=== PATIENT | female | born 1955 | race Caucasian/White ===

== ENCOUNTER 2017-04-29 13:29 | Inpatient (IN) | payer OTHER ==
[~2017-04-29] VITALS: Ht 165.1 cm; Wt 98.7 kg
--- NOTE | ~2017-04-29 | S ---
[facility] [place] [address] SURGICAL PATH RPT PROCEDURE Name: HEATHER YEUNG Room #: 236-P ADM IN M.R.#: [id number] Admission: 04/29/17 Date of : 55 Discharge: Report #: [id number] Path Case #: [id number] PATHOLOGY REPORT COLLECTION DATE: 05/01/2017 RECEIVED DATE: 05/03/2017 SUBMITTING PHYS: Dr. Chavo Vargas OTHER PHYS: Dr. Jan Forde SPECIMEN(S) RECEIVED: A.Necrotic right gluteal abscess tissue * * * * * * * * * * * * FINAL DIAGNOSIS: Soft tissue "necrotic right gluteal abscess tissue": - Extensive necrosis with acute inflammatory exudate and gangrenous type of necrosis. - See comment. COMMENT: Suggest clinical correlation as features suggest pyoderma gangrenosum. Correlate with microbiological cultures. (SHA:isaak; 05/04/2017) PATHOLOGIST: Jose Perez M.D. REPORT ELECTRONICALLY SIGNED BY: Jose Perez M.D. DATE/TIME: 05/04/2017 13:34 * * * * * * * * * * * * GROSS PATHOLOGY: The specimen is received in formalin, labeled "Heather Yeung, necrotic right gluteal abscess tissue". Received are multiple segments of pale yellow-mcgraw to pale mcgraw-brown, soft tissue admixed with pale yellow fibroadipose tissue measuring 8.1 x 4.9 x 1.6 cm in aggregate dimensions. The specimen is submitted representatively in cassette A1. (DAC; 05/03/2017) CLINICAL HISTORY: Second look right gluteal abscess INITIAL CPT CODE(S): A; 77562 [facility] [address] [place] [address] SURGICAL PATH RPT PROCEDURE Name: HEATHER YEUNG Room #: 236-P ADM IN M.R.#: [id number] Admission: 04/29/17 Date of : 55 Discharge: Report #: [id number] Path Case #: [id number] [address], [place] [address] Technical services performed by [facility] at [address] [place] [address], [facility] [address] [address]. [facility] [address] [place] [address] PHONE: [phone] DIRECTOR: Severiano Martino M.D. * * * END OF REPORT * * *
--- NOTE | ~2017-04-29 | TEE ---
[facility] [place] [address] TRANSESOPHAGEAL ECHOCARDIOGRAM Name: ANJANABIJAL L Room #: 236-P [facility] IN [facility]#: [id number] Admission: 04/29/17 Attend Phys: Jan Forde, Discharge: Date of : 55 Date of Service: 05/05/17 0954 Report #: [id number] THIS REPORT FOR: //name// APPROVED REPORT Study performed: 05/05/2017 09:48:54 EXAM: Comprehensive 2D, Doppler, and color-flow Echocardiogram Patient Location: ICU Room #: [facility] Status: routine BSA: 1.92 HR: 119 bpm BP: 85/49 mmHg Other Information Study Quality: Adequate Indications Bacteremia. Rule out valve infection. Procedure After obtaining informed consent, patient underwent transesophageal echo in the ICU. Type of Sedation : Conscious Sedation Sedation was administered by Minerva Mejia. Versed (1) Fentanyl (50) The RAN was performed without complications. Throughout the procedure, the blood pressure, pulse oximetry, cardiac rhythm, and rate were monitored. The patient tolerated the procedure without adverse effects. Recovery from conscious sedation was uneventful and vital signs were stable. Left Ventricle The left ventricle is normal size. There is normal LV segmental wall motion. There is normal left ventricular wall thickness. Left ventricular systolic function is normal. LVEF is 60-65%. Right Ventricle The right ventricle is normal size. The right ventricular systolic function is normal. [facility] [address] [place] [address] TRANSESOPHAGEAL ECHOCARDIOGRAM Name: BIJAL YEUNG Room #: 236-P ADM IN M.R.#: [id number] Admission: 04/29/17 Attend Phys: Jan Forde, Discharge: Date of : 55 Date of Service: 05/05/17 0954 Report #: [id number] The left atrium size is normal. No masses or clots in left atrium or left atrial appendage Lipomatous hypertrophy of atrial septum The right atrium size is normal. Aortic Valve Aortic valve is minimally sclerotic No aortic regurgitation is present. There is no aortic valvular stenosis. Mitral Valve The mitral valve is normal in structure. No mitral regurgitation. Tricuspid Valve The tricuspid valve is normal in structure. Trace tricuspid regurgitation. Pulmonic Valve The pulmonary valve is normal in structure. There is no pulmonic valvular regurgitation. Great Vessels The aortic root is normal in size. The ascending aorta is normal in size. Pericardium There is no pericardial effusion. <Conclusion> Left ventricular systolic function is normal. LVEF is 60-65%. Lipomatous hypertrophy of atrial septum The left atrium size is normal. No masses or clots in left atrium or left atrial appendage Aortic valve is minimally sclerotic. No aortic valvular stenosis or insufficiency. The mitral valve is normal in structure. No mitral regurgitation. Mild scattered atherosclerosis of aorta. No aneuysm There is no pericardial effusion. <ELECTRONICALLY SIGNED> By: Flavio Ochoa MD, FACC 05/05/17953 3 3 Flavio Ochoa MD, FACC /INF
--- NOTE | ~2017-04-29 | O ---
[facility] [place] [address] OPERATIVE REPORT Name: BIJAL YEUNG Anselmo Room #: 211-P [facility] IN ..#: [id number] Admission: 04/29/17 Attend Phys: Jan Forde MD Discharge: Date of : 55 Report #: [id number] THIS REPORT FOR: //name// CC: FAM unknown Jan Forde DATE OF SERVICE: 05/20/2017 PREOPERATIVE DIAGNOSES: 1. 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 2. Severe protein calorie malnutrition. 3. Generalized debility. 4. Diabetes mellitus. POSTOPERATIVE DIAGNOSES: 1. 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 2. Severe protein calorie malnutrition. 3. Generalized debility. 4. Diabetes mellitus. PROCEDURES PERFORMED: 1. Excisional debridement of skin, subcutaneous tissue, muscle and bone from a sacral and right ischial decubitus wound ultimately measuring 15.5 x 13 cm in dimension (201.5 square cm). Preoperative wound measurements were two separate wounds divideded by a skin bridge, each measuring 10 x 11 cm and 2 x 2 cm respectively. 2. Esophagogastroduodenoscopy (EGD) with percutaneous endoscopic gastrostomy (PEG) tube placement. 3. Diverting loop transverse colostomy. SURGEON: Jailyn Doan M.D. CERAMIC TILE MECHANIC: SUSANNA Yost. ANESTHESIA: General endotracheal anesthesia. ESTIMATED BLOOD LOSS: Minimal (less than 10 mL). COMPLICATIONS: None appreciated. SPECIMENS: All excised tissue to Pathology. INDICATIONS: The patient is a 62-year-old obese female with longstanding generalized debility, who presented nearly 3 weeks ago with sepsis, found to have a large gluteal abscess that eroded into the sacral tissues. After undergoing 3 separate debridement procedures, she now has evidence of a [facility] [address] [place] [address] OPERATIVE REPORT Name: BIJAL YEUNG Room #: 211-P [facility] IN [facility]#: [id number] Admission: 04/29/17 Attend Phys: Jan Forde MD Discharge: Date of : 55 Report #: [id number] large sacral and right ischial decubitus wound with a fibrinopurulent drainage persisting and periwound necrosis with 2 separate wounds by a thin skin bridge, but significant tunneling underneath. As the skin bridge itself was ischemic and bordering on necrosis, indication was for resection of all the above necrotic tissue back to healthy tissue throughout and performing diverting colostomy due to its close approximation with the anal orifice and placement of a PEG tube for enteral supplementation due to her severe protein calorie malnutrition and an albumin of 0.7. DESCRIPTION OF PROCEDURE: After explaining the risks, benefits and alternatives of the procedure with the patient in detail in the preoperative holding area and obtaining written consent, the patient was brought to the operating room and placed supine on her hospital bed. After conducting a thorough timeout procedure verifying correct patient and procedure, the patient was given general endotracheal anesthesia. Once adequate anesthesia was obtained, her SCDs were hooked up to pneumatic compression device and she was already on an inpatient regimen of IV antibiotic therapy, which is all in line with the SCIP protocol. The patient was now positioned on the operating room table in the prone position with all pressure points appropriately padded. The patient's wound was now prepped and draped in standard surgical sterile fashion. Electrocautery was now used to debride all skin, subcutaneous tissue and muscle from the periphery of the wound back to healthy bleeding tissue throughout. The debridement was carried down to the depths of the wound where the tip of the coccyx was identified and had soft spongy outer cortex which was removed and sent to microbiology for culture and sensitivity. In the bed of the wound, there was significant fibrinopurulent drainage with continued necrotic tissue at the superior portion of the wound and as I had removed the overlying skin bridge, we now had 1 large wound measuring 15.5 x 13 cm in dimension. Now that all necrotic nonviable tissue had been removed, I utilized the [employer] ultrasonic debridement tool to remove all remaining nonviable tissue as well as biofilm from the entirety of the wound. Electrocautery was now used for complete hemostasis and 2 vials of thrombin spray were placed in the bed of the wound to prevent recurrent bleeding. We observed the wound for 10 minutes showing no evidence of bleeding whatsoever. I now packed the wound tightly with sterile saline soaked Kerlix gauze, dressed it with ABDs and Medipore tape. The patient was then positioned in the supine position on the operating room table where I performed a thorough EGD. The Shopzillan upper endoscope was used to intubate the oropharynx, traversed down into the gastric lumen and the duodenum was intubated. The scope was advanced to the second portion of the duodenum where slow careful withdrawal of the scope showed no evidence of duodenitis, gastritis, esophagitis, mass lesions or ulcerations. Retroflexion view of the scope within the gastric lumen showed a hiatal hernia. The scope was straightened out in the gastric lumen. The stomach was fully insufflated. All lights were turned out in the operating room and we had easy transillumination in the left upper quadrant and manual external ballottement confirmed the site of PEG tube placement. This site was now prepped and draped in standard [address] [place] [address] OPERATIVE REPORT Name: BLU YEUNGYCE Anselmo Room #: 211-P [facility] IN M.R.#: [id number] Admission: 04/29/17 Attend Phys: Jan Forde MD Discharge: Date of : 55 Report #: [id number] surgical sterile fashion. 5 mL of 1% plain lidocaine was used to anesthetize the skin at this location. A #11 bladed scalpel was used to create a 7-mm transverse skin incision at this location. The needle - sheath apparatus was directed through the skin incision and directly through the anterior gastric wall under direct vision with the upper endoscope. Once intraluminal access was obtained, the needle was removed and a wire was placed down the sheath. This wire was grasped using a loop snare down the EGD scope and the entire EGD was removed via the oropharynx, bringing the wire with it. The loop snare was then released and removed and passed off the field and I proceeded to attach the pull type PEG tube that was 24-Cymraes in size to the wire. This was then pulled down the esophagus and directly through the anterior gastric and anterior abdominal wall under direct vision by placing the EGD scope back in the oropharynx and following the flange from the PEG tube back down into the gastric lumen. This was identified to measure 2.5 cm at the skin level with optimal tightness to where it was not too tight to cause ischemia or erosion. The gastric lumen was now fully desufflated. The scope was removed and passed off the field. The wire was cut off the pull type PEG tube in the external flange clamp and end adaptor were applied in standard fashion. The patient's abdomen was now prepped and draped in a standard surgical sterile fashion. 5 mL of 0.5% Marcaine with epinephrine were used to anesthetize the skin midway between the umbilicus and the xiphoid down the midline. #10 bladed scalpel was used to create a 3 cm longitudinal skin incision at this location. Electrocautery was used to carry this down through skin and subcutaneous tissues to ensure hemostasis until I arrived upon the fascia. The fascia was scored longitudinally and a finger was placed in the abdomen to control the incision and the fascial incision was opened to 3 cm as well. The transverse colon was seen to reside directly behind the incision and this was grasped with a [place] clamp and delivered through the wound. A window was made in the mesentery and a colostomy retention bar was passed through this window in the mesentery, which was then anchored to the skin using 2-0 nylon in standard fashion. The antimesenteric aspect of the colon was now elevated and a small colotomy was made with electrocautery. The hemostat was placed in the colotomy and this incision was opened longitudinally in a controlled fashion with electrocautery to prevent injury to the back wall. Once the colotomy was elongated appropriately both directions, I proceeded to mature the colostomy. A 3-0 Vicryl was now used to place a full thickness bite anchoring the colon to dermis on both the superior and inferior aspects on either side of the retention bar. Another 3-0 Vicryl was now used in standard running fashion to anchor the mucocutaneous junction on the right and left sides respectively. This gave us an excellently oriented diverting loop transverse colostomy. Digital finger intubation of the colostomy showed both lumens to be patent to a subfascial level. The colostomy was now dressed with a sterile colostomy appliance in standard fashion. This completed the procedure. At the end of the procedure, all instrument, needle and sponge counts were correct. The patient tolerated the procedure without incident, was awakened in the [facility] [address] [place] [address] OPERATIVE REPORT Name: BIJAL YEUNG Room #: 211-P [facility] IN [facility].#: [id number] Admission: 04/29/17 Attend Phys: Jan Forde MD Discharge: Date of : 55 Report #: [id number] operating room and transitioned to the recovery room in stable condition with no apparent complications. <ELECTRONICALLY SIGNED> By: Jailyn Doan MD, FACS 05/20/17 1435 1306 1324 Jailyn Doan MD, FACS /nt
--- NOTE | ~2017-04-29 | O ---
[facility] [place] [address] OPERATIVE REPORT Name: BIJAL YEUNG Anselmo Room #: 236-P ADM IN M.R.#: [id number] Admission: 04/29/17 Attend Phys: Jan Forde MD Discharge: Date of : 55 Report #: [id number] THIS REPORT FOR: //name// CC: FAM unknown Jan Forde DATE OF SERVICE: 04/30/2017 PREOPERATIVE DIAGNOSIS: Large right gluteal abscess 16 x 20 cm in greatest dimensions. POSTOPERATIVE DIAGNOSIS: Large right gluteal abscess 16 x 20 cm in greatest dimensions with necrosis. PROCEDURE: Drainage of large right gluteal abscess with debridement of necrotic tissue. SURGEON: Chavo Vargas MD CRYSTAL REPORT DEVELOPER: Dimitris Burnett MS3. INDICATIONS: This 62-year-old lady was found down at home and covered in her own feces and brought to the emergency department where she was found to have a large 16 x 20 cm gluteal abscess with some eschar of the skin overlying the abscess of approximately 3-4 cm in greatest diameter dimensions. OPERATIVE PROCEDURE: The patient had a discussion of the need for abscess drainage. She gave informed consent and this was the medical emergency. She was brought to the operating room suite and had satisfactory induction of general endotracheal anesthesia. The patient was then placed in lithotomy position. A 6-cm transverse incision directly through the eschar area was performed. Some of the eschar and necrotic skin tissue was excised and sent for histologic evaluation. A large abscess cavity with extensive necrosis tracked beside the anal canal superiorly for a distance of 12-16 cm. The abscess cavity tracked anteriorly into the right labia. Posteriorly, the abscess cavity tracked posteriorly for a distance of 8-10 cm. A posterior counter incision was performed of approximately 3-4 cm. All necrotic tissue was excised. Cultures were obtained for aerobes and anaerobes. Copious irrigation with 3 liters of saline was performed after the debridement of necrotic tissue. After this was accomplished, the wound was packed open with Betadine soaked Kerlix gauze 1-1/2 rolls to fill the large 16 x 20 cm cavity. A small amount of Kerlix was also placed in a counter incision posteriorly. The patient tolerated the procedure [address] [address] OPERATIVE REPORT Name: ANJANABIJAL Room #: 236-P [facility] IN ..#: [id number] Admission: 04/29/17 Attend Phys: Jan Forde MD Discharge: Date of : 55 Report #: [id number] well with an estimated blood loss of less than 25 mL. She returned to the recovery room in stable and satisfactory condition. <ELECTRONICALLY SIGNED> By: Chavo Vargas MD, FACS 05/12/17 1441 1416 1548 Chavo Vargas MD, FACS /nt
--- NOTE | ~2017-04-29 | S ---
[facility] [place] [address] SURGICAL PATH RPT PROCEDURE Name: HEATHER YEUNG Room #: 246-P ADM IN M.R.#: [id number] Admission: 04/29/17 Date of : 55 Discharge: Report #: [id number] Path Case #: [id number] PATHOLOGY REPORT COLLECTION DATE: 05/13/2017 RECEIVED DATE: 05/14/2017 SUBMITTING PHYS: Dr. Seven Le OTHER PHYS: Dr. Jan Forde SPECIMEN(S) RECEIVED: A.Right buttocks tissue * * * * * * * * * * * * FINAL DIAGNOSIS: A. Right buttocks tissue: - Skin with ulcer and abundant fungal organisms compatible with [place] species. - Fibroadipose tissue with mixed inflammation, granulation tissue formation, necrosis, and fat necrosis. PATHOLOGIST: Lenny Reddy M.D. REPORT ELECTRONICALLY SIGNED BY: Lenny Reddy M.D. DATE/TIME: 05/18/2017 10:14 * * * * * * * * * * * * GROSS PATHOLOGY: The specimen is received in formalin, labeled "Heather Yeung right buttocks tissue," and consists of 3 segments of christie-mcgraw to green skin and necrotic soft tissue measuring 7.6 x 4.0 x 1.1 cm in aggregate dimensions. Rn Relief Charge sections are submitted in cassette A1. (SDY; 05/14/2017) CLINICAL HISTORY: Right buttock wound INITIAL CPT CODE(S): A; 79268 Professional services performed by [facility] at [facility] [address] [place] [address] Technical services performed by [facility] at [address] [place] [id number]. [facility] [address] [place] [address] SURGICAL PATH RPT PROCEDURE Name: HEATHER YEUNG Room #: 246-P ADM IN M.R.#: [id number] Admission: 04/29/17 Date of : 55 Discharge: Report #: [id number] Path Case #: [id number] [address] PHONE: [phone] DIRECTOR: Severiano Martino M.D. * * * END OF REPORT * * *
--- NOTE | ~2017-04-29 | S ---
[facility] [place] [address] SURGICAL PATH RPT PROCEDURE Name: HEATHER YEUNG Room #: 211-P ADM IN M.R.#: [id number] Admission: 04/29/17 Date of : 55 Discharge: Report #: [id number] Path Case #: [id number] PATHOLOGY REPORT COLLECTION DATE: 05/20/2017 RECEIVED DATE: 05/20/2017 SUBMITTING PHYS: Dr. Jailyn Doan OTHER PHYS: Dr. Jan Forde SPECIMEN(S) RECEIVED: A.Rt sacral and ischial decubitis tissue * * * * * * * * * * * * FINAL DIAGNOSIS: "RT sacral and ischial decubitus tissue", debridement: - Skin and subcutaneous tissue with acute and chronic inflammation, necrosis, granulation tissue, fibrosis, fat necrosis and overlying pseudoepitheliomatous hyperplasia. (CLW:ronit; 05/21/2017) PATHOLOGIST: Rupali Bruno M.D. REPORT ELECTRONICALLY SIGNED BY: Rupali Bruno M.D. DATE/TIME: 05/22/2017 14:48 * * * * * * * * * * * * GROSS PATHOLOGY: Received in formalin labeled "Heather Yeung, right sacral and ischial decubiti tissue" are three portions of mcgraw-white skin and underlying red-brown necrotic soft tissue which range from 2.2 x 2.0 x 1.3 cm to 4.6 x 3.5 x 2.7 cm. The skin surfaces on two of the portions have mcgraw-white possible scars measuring 1.3 x 0.1 and 1.7 x 0.1 cm. Upon sectioning, a mcgraw-white fibrotic cut surface is identified. Ecological Risk Assessor sections are submitted in cassette A1. ([facility]; 05/20/2017) CLINICAL HISTORY: Sacral wound. INITIAL CPT CODE(S): A; 94371 Professional services performed by [facility] at [facility] [address] , [place] [address] Technical services performed by [facility] at [address] [place] [address]. [facility] [address] [place] [address] SURGICAL PATH RPT PROCEDURE Name: HEATHER YEUNG Room #: 211-P [facility] IN ..#: [id number] Admission: 04/29/17 Date of : 55 Discharge: Report #: [id number] Path Case #: [id number] [facility] [address] [place] [address] PHONE: [phone] DIRECTOR: Severiano Martino M.D. * * * END OF REPORT * * *
--- NOTE | ~2017-04-29 | O ---
[facility] [place] [address] OPERATIVE REPORT Name: BIJAL YEUNG Anselmo Room #: 236-P ADM IN M.R.#: [id number] Admission: 04/29/17 Attend Phys: Jan Forde MD Discharge: Date of : 55 Report #: [id number] THIS REPORT FOR: //name// CC: FAM unknown Jan Forde DATE OF SERVICE: 05/13/2017 LOCATION: [facility], [facility]. 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 PROCEDURE: Excisional debridement of skin and subcutaneous tissue, right buttock wound measuring 13 cm x 8 cm x 9 cm deep. VET TECH: Seven Le MD ANESTHESIA: General LMA and local Marcaine 0.25% with epinephrine. INDICATIONS: The patient is a 62-year-old diabetic woman who has undergone 2 previous debridements for Ashlyn gangrene of the right buttock. Despite these debridements, there was limited access to the wound and necrotic tissue in the wound and necrotic skin, making dressing changes difficult. There was frankly necrotic skin and subcutaneous tissue. Informed consent was obtained for excisional debridement. PROCEDURE DESCRIPTION: With the patient in the supine lithotomy position on the operating room stable, smooth induction of general LMA anesthesia, legs elevated in gynecologic stirrups. Anus and perineum prepped with Hibiclens, sterilely prepared in usual fashion. Cultures were taken of the deep wound. The patient was seen to have a horizontal wound, and superior to this there was overlying skin, which was thin and unhealthy. Wound had significant amount of necrotic subcutaneous tissue. Marcaine 0.25% with epinephrine was locally infiltrated. Needle tip electrocautery was used to remove a 4 x 5 cm piece of thin skin over the wound, which was making the wound difficult to pack. This was very thin and unhealthy skin. This gave greater exposure to the wound. Wound had several areas of necrotic subcutaneous tissue. This was debrided using forceps and cautery. Nonetheless there was some significant bleeding, requiring suture ligation with 2-0 and 4-0 Vicryl. There were some tracking and fascial planes of unhealthy tissue. All debrideable necrotic tissue was removed. There was no obvious purulence or indu muscle necrosis present. The original infectious process appeared to track to the post anal space to the opposite side; however, [address] [address] OPERATIVE REPORT Name: BIJAL YEUNG Room #: 236-P [facility] IN .R.#: [id number] Admission: 04/29/17 Attend Phys: Jan Forde MD Discharge: Date of : 55 Report #: [id number] there was no indu necrosis. I did not open up this area. All necrotic skin and subcutaneous tissue was removed. Hemostasis was achieved with cautery and suture. Hemostasis was complete. All frankly necrotic tissue was removed. There was a counter incision, which had remained inferiorly. This was left intact. The patient was left with the wide open wound, measuring 13 cm in composite area x 8 cm x 9 cm deep. Most of the wound has relatively healthy granulation tissue. There was no foul odor. The patient tolerated the procedure well. Hemostasis was complete. Wound packed with quarter strength Dakin gauze. The patient returned to the ICU. <ELECTRONICALLY SIGNED> By: Seven Le MD 05/15/17 0828 1802 1918 Seven Le MD /nt
--- NOTE | ~2017-04-29 | EKG ---
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 : 1955 Requested By: Jan Forde Order Number: [id number] MD: Flavio Ochoa Measurements Intervals [place] Rate: 97 P: 51 FL: 161 QRS: 44 QRSD: 94 T: 46 QT: 374 QTc: 475 Interpretive Statements Sinus rhythm No significant abnormality Compared to ECG 04/29/2017 14:16:45 Sinus tachycardia no longer present Atrial premature complex(es) no longer present Electronically Signed On 05-04-2017 8:17:39 NEEDLE CONTROL CHENILLER by Flavio Ochoa [email or web address] <ELECTRONICALLY SIGNED> By: Flavio Ochoa MD, [facility] 05/04/17816 1 1 Flavio Ochoa MD, [facility] /EPI
--- NOTE | ~2017-04-29 | HC ---
[facility] [place] [address] CONSULTATION Name: BIJAL YEUNG Room #: 236-P ADM IN M.R.#: [id number] Admission: 04/29/17 Attend Phys: Jan Forde MD Discharge: Date of : 55 Report #: [id number] THIS REPORT FOR: //name// CC: FAM unknown Jan Forde PRIMARY CARE PHYSICIAN: Unknown. REFERRING PHYSICIAN: Jan Forde MD REASON FOR REFERRAL: Sepsis. HISTORY OF PRESENT ILLNESS: The patient is a 62-year-old white female who was admitted through the Emergency Room with gluteal abscess. Pulmonary Critical Care consultation was requested regarding severe sepsis. The patient apparently had been living at home. More recently, she has had complaints of increasing weakness and dizziness. Yesterday, she fell while trying to get out of the bathroom. Senior services were called. The patient was found to be covered with feces in the floor. She was brought to the Emergency Room. In the ER, she was found to have cellulitis around the right buttock with an abscess. Presently, she is restless, incoherent. I am not able to obtain much history. PAST MEDICAL HISTORY: Notable for COPD. PAST SURGICAL HISTORY: Unknown. ALLERGIES: CODEINE, REACTIONS NOT SPECIFIED. HOME MEDICATIONS LIST: Percocet, Xanax, Soma. FAMILY HISTORY: Unknown. SOCIAL HISTORY: Incomplete. The patient apparently lives at home. REVIEW OF SYSTEMS: Deferred as the patient is confused at this moment. PHYSICAL EXAMINATION: GENERAL: She is awake, appears mildly distressed, she is restless. VITAL SIGNS: Temperature is 97.5 degrees Fahrenheit, pulse is 90, respiratory rate is 18, blood pressure is 100/58 mmHg, saturation is 93%. HEENT: Normocephalic, atraumatic. NECK: Supple without any lymphadenopathy or thyromegaly. [facility] [address] [place] [address] CONSULTATION Name: BIJAL YEUNG Room #: 236-P [facility] IN [facility]#: [id number] Admission: 04/29/17 Attend Phys: Jan Forde MD Discharge: Date of : 55 Report #: [id number] CHEST: Breath sounds are fair due to poor effort, otherwise clear without any rales or wheezes. CARDIOVASCULAR: Normal S1, S2. There are no murmurs or gallop. There is no JVD. There is no carotid bruit. Pulses are 2+/4+ bilaterally. ABDOMEN: Soft, nontender. No organomegaly or masses felt. GENITOURINARY: Deferred. RECTAL: Deferred. EXTREMITIES: No edema, cyanosis or clubbing. DERMATOLOGIC: Including right buttock as previously documented showing a right buttock abscess. LABORATORY DATA: Portable chest x-ray is clear. Sodium 137, potassium 3.7, chloride 103, CO2 of 26, BUN is 25, creatinine is 2.1. Liver function enzyme mildly abnormal. WBC 13,000; hemoglobin 8.2; platelets are normal. Albumin 0.9. Arterial blood gas revealed pH 7.45, pCO2 of 29, pO2 of 65 on 2 liters of O2. Vancomycin level is 21. IMPRESSION: 1. Right decubitus ulcer with an abscess, now with severe sepsis with acute kidney injury, encephalopathy, respiratory failure. 2. Right decubitus ulcer and abscess. She now has developed Staphylococcus bacteremia. Antibiotics per ID. 3. Encephalopathy, toxic and metabolic. 4. Chronic obstructive pulmonary disease appears to be relatively stable. 5. Severe protein-calorie malnutrition, albumin 0.9. 6. Generalized deconditioning and weakness. This appears to be profound as the patient has now demonstrated decubitus ulcer. 7. Diabetes mellitus type 2. RECOMMENDATIONS: Agree with sepsis protocol. Wean O2 for saturation 90%. DVT and GI prophylaxis will be addressed. Continue broad spectrum antibiotics. Once stable, the patient will need to have nutritional status addressed along with weakness. Thank you for this consultation. <ELECTRONICALLY SIGNED> By: Aren Stover MD 05/04/17 1301 1606 3645 Aren Stover MD /nt
--- NOTE | ~2017-04-29 | S ---
[facility] [place] [address] SURGICAL PATH RPT PROCEDURE Name: ANJANAHEATHER L Room #: 246-P ADM IN M.R.#: [id number] Admission: 04/29/17 Date of : 55 Discharge: Report #: [id number] Path Case #: [id number] PATHOLOGY REPORT COLLECTION DATE: 05/16/2017 RECEIVED DATE: 05/18/2017 SUBMITTING PHYS: Dr. Seven Le OTHER PHYS: Dr. Jan Forde SPECIMEN(S) RECEIVED: A.Hematoma * * * * * * * * * * * * FINAL DIAGNOSIS: "Hematoma", evacuation: - Organizing fresh hemorrhage consistent with hematoma. (CLW:ronit; 05/19/2017) PATHOLOGIST: Rupali Bruno M.D. REPORT ELECTRONICALLY SIGNED BY: Rupali Bruno M.D. DATE/TIME: 05/19/2017 13:11 * * * * * * * * * * * * GROSS PATHOLOGY: The specimen is received in formalin, labeled "Heather Yeung, left gluteal wound, hematoma," consists of blood clot admixed with possible mcgraw-brown soft tissue measuring 7.5 x 4.5 x 1.4 cm aggregate dimensions. Hooker Laster sections are submitted in cassette A1. (SDY; 05/18/2017) CLINICAL HISTORY: Left gluteal wound Evacuation of hematoma INITIAL CPT CODE(S): A; 88458 Professional services performed by [facility] at [facility] [address], [place] [address] Technical services performed by [facility] at [address] [place] [address], [place] [address], [place] [address]. [facility] [address] [place] [address] SURGICAL PATH RPT PROCEDURE Name: HEATHER YEUNG Room #: 246-P ADM IN M.R.#: [id number] Admission: 04/29/17 Date of : 55 Discharge: Report #: [id number] Path Case #: [id number] [address] PHONE: [phone] DIRECTOR: Severiano Martino M.D. * * * END OF REPORT * * *
--- NOTE | ~2017-04-29 | HC ---
[facility] [place] [address] CONSULTATION Name: BIJAL YEUNG Anselmo Room #: 246-P [facility] IN ..#: [id number] Admission: 04/29/17 Attend Phys: Jan Forde MD Discharge: Date of : 55 Report #: [id number] THIS REPORT FOR: //name// CC: FAM unknown Jan Forde DATE OF SERVICE: 05/16/2017 GENERAL SURGERY CONSULTATION REFERRING PROVIDER: Seven Le M.D. REASON FOR CONSULT: Decubitus wound with need for diversion colostomy. HISTORY OF PRESENT ILLNESS: The patient is a 62-year-old female with diabetes and poor self-care who presented slightly greater than 2 weeks ago with sepsis with hypotension, decreased urine output and elevated creatinine with mental status changes secondary to a large gluteal abscess. The patient has now undergone 3 bouts of debridement, returning high-grade MSSA bacteremia. The patient's wound is near her anal orifice and after her most recent debridement, request has now been made for diversion colostomy and PEG tube placement for enteral access, especially in light of the patient's severe protein-calorie malnutrition. The patient underwent repeat debridement just yesterday and her wound is dressed and she is resting comfortably, but arouses with stimulation and does not appear in any distress. PAST MEDICAL HISTORY: COPD, heavy smoker and diabetes mellitus. HOME MEDICATIONS: Xanax, Soma and oxycodone. ALLERGIES: CODEINE. FAMILY HISTORY: Reviewed and noncontributory. SOCIAL HISTORY: The patient uses significant tobacco, but no alcohol or illicit drug use. REVIEW OF SYSTEMS: GENERAL: The patient denies nocturnal fevers or chills. HEENT: No change in vision, change in hearing. NECK: No swelling or difficulty swallowing. HEART: No chest pain, palpitations. LUNGS: No cough or shortness of breath. ABDOMEN: No nausea, no vomiting. GENITOURINARY: No dysuria or hematuria. [facility] [address] [place] [address] CONSULTATION Name: BIJAL YEUNG Room #: 246-P [facility] IN [facility]#: [id number] Admission: 04/29/17 Attend Phys: Jan Forde MD Discharge: Date of : 55 Report #: [id number] ENDOCRINE: No polyuria, polydipsia. HEMATOLOGIC: No history of bleeding or easy bruising. EXTREMITIES: No history of weakness or limited range of motion. NEUROLOGIC: No history of syncope or near syncopal episodes. SKIN AND INTEGUMENT: No prior history of abnormal lesions or moles. PSYCHIATRIC: No history of anxiety or depression. PHYSICAL EXAMINATION: VITAL SIGNS: Temperature 98.8, pulse 104, respirations 20, blood pressure 122/80. She weighs 211 pounds. GENERAL: She is somnolent, but arousable with stimulation and in no acute distress. HEENT: Normocephalic, atraumatic. Pupils are equal, round, reactive to light. NECK: Supple, without lymphadenopathy. Trachea midline. HEART: Tachycardic, but regular rhythm. LUNGS: Clear to auscultation bilaterally with diminished breath sounds at the bases bilaterally. ABDOMEN: Obese, soft and nontender. She has no distention and certainly no peritoneal signs or symptoms. GENITOURINARY: Normal external female genitalia. EXTREMITIES: No clubbing, cyanosis or edema. NEUROLOGIC: Cranial nerves 2-12 are grossly intact. PSYCHIATRIC: Normal mood and affect. SKIN AND INTEGUMENT: Sacral wound has a dressing in place that is reinforced and was not taken down as Dr. Le is coming to see the patient momentarily. LABORATORY AND X-RAY DATA: CBC shows white blood cell count of 10.7 thousand, hemoglobin 7.9, platelets 306,000. Creatinine is 2.3. Albumin is 0.7. ASSESSMENT AND PLAN: A 62-year-old female with a stage 4 sacral decubitus wound and resolving Methicillin-sensitive Staphylococcus aureus bacteremia who also has severe protein-calorie malnutrition, generalized debility and acute kidney injury secondary to her recent septic episode. Request has been made for diverting colostomy and PEG tube placement, both of which are absolutely indicated in this patient with her wound being near her anal orifice and her albumin of 0.7 with poor enteral nutrition. As the patient just received pain medications and is somnolent, I will [place] back around to have ongoing discussion with her regarding the above plan. I sincerely appreciate this consult. I will follow closely and leave any further recommendations in the patient's chart as appropriate. <ELECTRONICALLY SIGNED> By: Jailyn Doan MD, FACS 05/18/17 1301 0803 7 Jailyn Doan MD, FACS /nt
--- NOTE | ~2017-04-29 | O ---
[facility] [place] [address] OPERATIVE REPORT Name: BIJAL YEUNG Anselmo Room #: 236-P ADM IN M.R.#: [id number] Admission: 04/29/17 Attend Phys: Jan Forde MD Discharge: Date of : 55 Report #: [id number] THIS REPORT FOR: //name// CC: FAM unknown Jan Forde DATE OF SERVICE: 05/01/2017 PREOPERATIVE DIAGNOSIS: Right gluteal abscess 16 x 20 cm previously drained with excisional debridement. POSTOPERATIVE DIAGNOSIS: Right gluteal abscess 16 x 20 cm previously drained with excisional debridement. PROCEDURE: Second look debridement, irrigation and packing of large 16 x 20 cm, right gluteal abscess cavity. INDICATIONS: The patient had a previous incision and drainage 24 hours ago with evacuation of a large gluteal abscess and cultures obtained. The patient returns to have additional excisional debridement of any additional necrotic tissue to prevent a necrotizing soft tissue wound infection. OPERATIVE PROCEDURE: The patient gave informed consent to proceed. She was brought to the operating suite and had satisfactory induction of general endotracheal anesthesia. She was placed in lithotomy position. The packing 1-1/2 rolls of Kerlix soaked with dilute Betadine was removed. Again, necrotic tissue was debrided and this comprised an area of tissue approximately 2 x 4 x 2 cm in greatest dimensions. This was all excisional debridement of skin, subcutaneous tissue with necrosis. Copious irrigation with 3 liters of saline was then performed. The wound was again packed open with saline-soaked 1-1/2 rolls of Kerlix gauze. A small amount of Kerlix gauze was placed in the counterincision which was posterior. The tissues were improving in their appearance. The estimated blood loss was less than 5 mL. There was no evidence of active bleeding when the original packing was removed. The patient tolerated the procedure well and she returned to recovery room in stable and satisfactory condition. <ELECTRONICALLY SIGNED> By: Chavo Vargas MD, FACS 05/12/17 1441 1419 1534 Chavo Vargas MD, FACS /nt
--- NOTE | ~2017-04-29 | EKG ---
[address] [address] ELECTROCARDIOGRAM REPORT Name: BIJAL YEUNG Room #: 408- ADM IN M.R.#: [id number] Admission: 04/29/17 Attend Phys: Jan Forde MD Discharge: Date of : 55 Report #: [id number] THIS REPORT FOR: //name// [facility] ED Test Date: 2017-04-29 Test Time: 14:16:45 Pat Name: BIJAL YEUNG Department: Room: [facility] Gender: F Security Manager: [facility] : 1955 Requested By: Lazaro Torres Order Number: [id number] MD: Tomas Lawler Measurements Intervals [place] Rate: 101 P: 52 [place]: 169 QRS: 47 QRSD: 95 T: 43 QT: 391 QTc: 507 Interpretive Statements Sinus tachycardia Atrial premature complex No previous ECG available for comparison Electronically Signed On 04-29-2017 21:19:51 MOLDER HAND by Tomas Lawler [email or web address] <ELECTRONICALLY SIGNED> By: Tomas Lawler MD 04/29/17 2119 1416 141 Tomas Lawler MD /EDNA
--- NOTE | ~2017-04-29 | HC ---
[facility] [place] [address] CONSULTATION Name: BIJAL YEUNG Anselmo Room #: 236-P ADM IN .R.#: [id number] Admission: 04/29/17 Attend Phys: Jan Forde MD Discharge: Date of : 55 Report #: [id number] THIS REPORT FOR: //name// CC: FAM unknown Jan Forde DATE OF SERVICE: 04/30/2017 HISTORY OF PRESENT ILLNESS: I have been asked to evaluate this 62-year-old lady who was found at her home, lying on the floor covered with feces. She had not been feeling well for a few days. She has not been eating or drinking properly. She was brought to the Emergency Room with tachycardia. She was also found to have a large right gluteal abscess and cellulitis with a 2-3 cm diameter eschar of the gluteal region. She was found to have a compression fracture at L4 and hypokalemia. The patient is minimally verbally responsive. PAST MEDICAL HISTORY: That can be obtained is consistent with COPD. PAST SURGICAL ILLNESSES AND HISTORY: No abdominal surgery. ALLERGIES: CODEINE. SOCIAL HISTORY: Lives at a nursing facility or assisted living. She does not smoke cigarettes, does not use alcohol. CURRENT MEDICATIONS: Not known and not sent forward from the nursing facility. REVIEW OF SYSTEMS: A 10-point review of systems is not obtainable from the patient. PHYSICAL EXAMINATION: GENERAL: Demonstrates the patient to be mildly sedated from pain medication. She is alert and oriented x 3. NECK: Supple, no adenopathy. CARDIOVASCULAR: Tachycardia. PULMONARY: Clear to bases auscultation. ABDOMEN: Nontender. No masses. PERINEUM: A large 10 x 14 area of induration and erythema with a central 3-4 cm eschar of the entire right gluteal space which also tracks anteriorly toward the labia. RECTAL Demonstrates smeared feces. IMAGING: CAT scan is consistent with a large right gluteal abscess. LABORATORY DATA: The patient's white count is elevated. She is hyponatremic. [address] [address] CONSULTATION Name: BIJAL YEUNG Room #: 236-P [facility] IN .R.#: [id number] Admission: 04/29/17 Attend Phys: Jan Forde MD Discharge: Date of : 55 Report #: [id number] PLAN: I would recommend IV antibiotics. The patient requires emergent incision and drainage and evacuation of this large right gluteal abscess and debridement of necrotic tissue in the operating room today. Thank you for allowing us to participate in her care. We will schedule and proceed as soon as possible. <ELECTRONICALLY SIGNED> By: Chavo Vargas MD, FACS 05/12/17 1441 1749 0342 Chavo Vargas MD, FACS /nt
--- NOTE | ~2017-04-29 | EKG ---
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 : 1955 Requested By: Jan Forde Order Number: [id number] MD: Flavio Ochoa Measurements Intervals [place] Rate: 103 P: 73 [place]: 155 QRS: 54 QRSD: 59 T: 87 QT: 394 QTc: 516 Interpretive Statements Sinus tachycardia Anterior infarct, old Nonspecific T abnormalities Prolonged QT interval Baseline wander in lead(s) V6 No previous ECGs available for comparison Electronically Signed On 05-17-2017 10:07:50 INSULATION MACHINE OPERATOR by Flavio Ochoa [email or web address] <ELECTRONICALLY SIGNED> By: Flavio Ochoa MD, [facility] 05/17/17 [facility] 1828 182 Flavio Ochoa MD, [facility] /EPI
--- NOTE | ~2017-04-29 | EKG ---
[address] [address] ELECTROCARDIOGRAM REPORT Name: BLU YEUNGYCNeno Briones Room #: 441-P [facility] IN M.R.#: [id number] Admission: 04/29/17 Attend Phys: Jan Forde MD Discharge: Date of : 55 Report #: [id number] THIS REPORT FOR: //name// [facility] Test Date: 2017-05-15 Test Time: 11:20:33 Pat Name: BIJAL YEUNG Department: Room: [facility] Gender: F Cardroom Supervisor: AALIYAH : 1955 Requested By: Jan Forde Order Number: [id number] MD: Flavio Ochoa Measurements Intervals [place] Rate: 108 P: MA: QRS: 54 QRSD: 88 T: 44 QT: 365 QTc: 490 Interpretive Statements Sinus tachycardia Low voltage, extremity and precordial leads Borderline prolonged QT interval Compared to ECG 05/03/2017 08:12:34 Low QRS voltage now present Electronically Signed On 05-16-2017 14:21:25 AGRICULTURAL AGENT by Flavio Ochoa [email or web address] <ELECTRONICALLY SIGNED> By: Flavio Ochoa MD, [facility] 05/16/17 1421 1120 1120 Flavio Ochoa MD, [facility] /EPI
--- NOTE | ~2017-04-29 | S ---
[facility] Moni Marie [facility] [place] [address] SURGICAL PATH RPT PROCEDURE Name: HEATHER YEUNG Room #: 236-P ADM IN M.R.#: [id number] Admission: 04/29/17 Date of : 55 Discharge: Report #: [id number] Path Case #: [id number] PATHOLOGY REPORT COLLECTION DATE: 04/30/2017 RECEIVED DATE: 04/30/2017 SUBMITTING PHYS: Dr. Chavo Vargas OTHER PHYS: Dr. Jan Forde SPECIMEN(S) RECEIVED: A.Right gluteal abscess tissue * * * * * * * * * * * * FINAL DIAGNOSIS: Soft tissue, "right gluteal abscess tissue, biopsy": - Necrotic tissue with acute inflammatory exudate and extensive necrosis and possible bacterial colonization. - See comment. COMMENT: Suggest clinical and microbiological correlation. (SHA:mml; 05/04/2017) PATHOLOGIST: Jose Perez M.D. REPORT ELECTRONICALLY SIGNED BY: Jose Perez M.D. DATE/TIME: 05/04/2017 13:33 * * * * * * * * * * * * GROSS PATHOLOGY: Received in formalin labeled "Heather Yeung, tissue from right gluteal abscess" and consists of a 5.2 x 4.7 x 2.2 cm aggregate of christie, green, and maroon necrotic tissue admixed with minimally viable adipose tissue. Soldering Inspector sections are submitted as A1. (MAREK; 05/03/2017) CLINICAL HISTORY: Gluteal abscess INITIAL CPT CODE(S): A; 07055 Professional services performed by [facility] at [facility] [address] , [place] [address] Technical services performed by [facility] at [address] [place] [address] [place] [address] SURGICAL PATH RPT PROCEDURE Name: HEATHER YEUNG Room #: 236-P ADM IN M.R.#: [id number] Admission: 04/29/17 Date of : 55 Discharge: Report #: [id number] Path Case #: [id number] [place] [address]. [facility] [address] [address] PHONE: [phone] DIRECTOR: Severiano Martino M.D. * * * END OF REPORT * * *
--- NOTE | ~2017-04-29 | O ---
[facility] [place] [address] OPERATIVE REPORT Name: BIJAL YEUNG Room #: 246-P ADM IN M.R.#: [id number] Admission: 04/29/17 Attend Phys: Jan Forde MD Discharge: Date of : 55 Report #: [id number] THIS REPORT FOR: //name// CC: FAM unknown Jan Forde DATE OF SERVICE: 05/16/2017 LOCATION: [facility]. PREOPERATIVE DIAGNOSES: Active bleeding from right gluteal wound with large wound hematoma, estimate 2 units of packed red blood cell, blood loss of fresh blood and hematoma in the patient's bed. POSTOPERATIVE DIAGNOSES: Active bleeding from right gluteal wound with large wound hematoma, estimate 2 unit packed red blood cell, blood loss of fresh blood and hematoma in the patient's bed with large hematoma at base of wound and slight wound oozing. PROCEDURE: Exam under anesthesia, wound exploration, wound irrigation and hematoma evacuation with cautery hemostasis, oozing bleeding base of wound. BIOLOGICS SPECIALIST: Seven Le M.D. ANESTHESIA: General LMA. INDICATIONS: The patient is a 62-year-old woman who I previously did surgery and debrided a large gluteal wound. This was her third surgery. A packing change was done of the wound this morning. Afterwards the nurse reported several hours later that there was a large clot in the bed about the size of a softball. I asked the nurse to place pressure hemostasis on the wound. When I arrived at the patient's bedside, there was a large amount of blood in the bed and clot. I estimated about 2 units of blood. The patient was hemodynamically stable. Pressure was held on the wound. Informed consent was obtained for exam under anesthesia. Hematoma evacuation, wound irrigation and cautery or suture hemostasis. PROCEDURE DESCRIPTION: With the patient in supine lithotomy position on the operating room stable, smooth induction of general LMA anesthesia, legs elevated in gynecologic stirrups. Anus and perineum region prepped with Betadine solution and sterilely draped in usual fashion. Wound packing was removed. No active bleeding was seen when the wound was visually inspected. A large hematoma was removed from the wound. There was some slight amount of hematoma at the base of the wound. I did not disrupt this, so the bleeding would not start again. There was some slight oozing from tissue surfaces of the base of the wound. Cautery hemostasis was achieved. Most of the hematoma was [facility] [address] [place] [address] OPERATIVE REPORT Name: BIJAL YEUNG Room #: 246-P [facility] IN [facility]#: [id number] Admission: 04/29/17 Attend Phys: Jan Forde MD Discharge: Date of : 55 Report #: [id number] evacuated. No active bleeding was seen. Once cautery hemostasis was achieved, the wound was tightly packed with quarter strength Dakin's packing. I felt confident at the end of the case that there was complete hemostasis. There being no further bleeding with the pack in place. I did not attempt to remove all the hematoma, so as not to stirrup more active bleeding. The patient tolerated the procedure well. Barrier cream was placed around the skin. Rectal tube was left intact. The patient to be transferred to the ICU. She received 1 unit of packed blood cells intraoperatively being given and I will request 1 more unit of packed red blood cells in the ICU based on the magnitude of the blood loss, which I observed. <ELECTRONICALLY SIGNED> By: Seven Le MD 05/17/17 1411 1816 1854 Seven Le MD /nt
--- NOTE | ~2017-04-29 | HC ---
[facility] [place] [address] CONSULTATION Name: BLU YEUNGYCE Anselmo Room #: 408-P ADM IN ..#: [id number] Admission: 04/29/17 Attend Phys: Jan Forde MD Discharge: Date of : 55 Report #: [id number] THIS REPORT FOR: //name// CC: FAM unknown Jan Forde TYPE OF REPORT: Infectious disease consultation. REASON FOR CONSULTATION: The patient was a 62-year old asked to evaluate concerning gluteus abscess. HISTORY OF PRESENT ILLNESS: Underlying diabetes, COPD and active smoker; who had malaise for last several days. She fell at home when seen her services found her covered in feces, brought into the Emergency Room. She was tachycardic with a large right buttock area of eschar erythema and fluctuance. She was taken to the operating room by Dr. Chavo Vargas with debridement of necrotic tissue and drainage of a fairly large abscess. Postoperatively, was treated with vancomycin and Zosyn. ALLERGIES: CODEINE. MEDICATIONS: As noted on her MAR. PAST MEDICAL HISTORY: COPD, further details not available. The patient was a poor historian. She was rather lethargic. FAMILY HISTORY: Noncontributory. SOCIAL HISTORY: She is a smoker of cigarettes. No significant alcohol intake. REVIEW OF SYSTEMS: She denies any cough or sputum production. Denies any abdominal pain. Has an indwelling Howe catheter. PHYSICAL EXAMINATION: VITAL SIGNS: Afebrile. Maximum temperature is 100 degrees. GENERAL: She is hemodynamically stable. She is on 2 liters of oxygen per nasal cannula. HEENT: Unremarkable. NECK: Supple. LUNGS: Clear. HEART: Regular, without murmur. ABDOMEN: Large abdominal ventral hernia, which was nontender. She has a large right gluteal abscess, which is now packed and dressing intact. Surrounding area was tender. Indwelling Howe catheter. EXTREMITIES: Unremarkable. LABORATORY STUDIES: Sodium 133, potassium 3.9, bicarbonate 33, creatinine 0.[address] [address] CONSULTATION Name: ANJANABIJAL L Room #: [address] [place] [address] [place] ..#: [id number] Admission: 04/29/17 Attend Phys: Jan Forde MD Discharge: Date of : 55 Report #: [id number] and glucose 145. Lactate 1.4. BNP 1669. Hemoglobin 10.7; WBC 9.6 and platelet count 227,000. Differential, 96% segs, 2% bands and hemoglobin A1c was 11.7. Urinalysis: 2+ ketones, 1+ glucose, many bacteria and rare wbc's. Blood cultures showing gram-positive cocci consistent with staph. Urine culture is pending. Nasal swab for influenza negative. Group A Strep swab negative. Culture of the abscess pending. CT scan of the pelvis. The abscess did extend from the right buttock into the right perianal region with no extension into the intraperitoneal pelvis. Chest x-ray negative. CT head negative. CT lumbar spine, vertebral compression deformity involving superior endplate, L4, possibly acute. Surgery evaluation note a 10 x 16 cm abscess with induration of the right gluteus and peritoneum intraoperative report is still pending. IMPRESSION AND PLAN: A 62-year-old diabetic with right gluteal abscess and staphylococcal bacteremia. This should still be a polymicrobial infection. We will await blood culture results. We will continue vancomycin and Zosyn pending the studies. Continue with wound care. Await operative report. <ELECTRONICALLY SIGNED> By: Troy Godinez MD 05/01/17 1207 1959 0040 Troy Godinez MD /nt
--- NOTE | ~2017-04-29 | 2DMMODE ---
[facility] [address] [place] [address] 2 D/M-MODE ECHOCARDIOGRAM Name: BIJAL YEUNG Room #: 408-P ADM IN M.R.#: [id number] Admission: 04/29/17 Attend Phys: Jan Forde, Discharge: Date of : 55 Date of Service: 05/03/17 [facility] Report #: [id number] THIS REPORT FOR: //name// APPROVED REPORT Study performed: 05/03/2017 09:13:25 EXAM: Comprehensive 2D, Doppler, and color-flow Echocardiogram Patient Location: Bedside Room #: [facility] Status: routine BSA: 1.88 HR: 99 bpm BP: 93/47 mmHg Other Information Study Quality: Fair Indications COPD Diabetes Pulmonary Valve PV Peak Edi.: 1.17 m/s PV Peak Gr.: 5.49 mmHg Left Ventricle The left ventricle is normal size. Regional wall motion is not well visualized but grossly normal. There is normal left ventricular wall thickness. The left ventricular systolic function is normal. The left ventricular ejection fraction is within the normal range. LVEF is 60-65%. This study is not technically sufficient to allow evaluation of the LV diastolic function. Right Ventricle The right ventricle is normal size. The right ventricular systolic function is normal. Atria The left atrium size is normal. The right atrium size is normal. Aortic Valve Aortic valve is calcified, probably trileaflet. No aortic regurgitation is present. There is no aortic valvular stenosis. [facility] [address] [place] [address] 2 D/M-MODE ECHOCARDIOGRAM Name: BIJAL YEUNG Room #: 408-P [facility] IN M.R.#: [id number] Admission: 04/29/17 Attend Phys: Jan Forde, Discharge: Date of : 55 Date of Service: 05/03/17 1037 Report #: [id number] Mitral Valve There is mitral annular calcification. There is no mitral valve regurgitation noted. No evidence of mitral valve stenosis. Tricuspid Valve The tricuspid valve is normal in structure. There is no tricuspid valve regurgitation noted. Pulmonic Valve The pulmonary valve is normal in structure. There is no pulmonic valvular regurgitation. Great Vessels The aortic root is normal in size. IVC is normal in size and collapses >50% with inspiration. Pericardium There is no pericardial effusion. <Conclusion> Very limited study The left ventricular systolic function is normal. Aortic valve is calcified, probably trileaflet. No aortic valvular stenosis or insufficiency. There is mitral annular calcification. No mitral valve regurgitation noted. Pulmonary artery pressure could not be reliably ascertained There is no pericardial effusion. <ELECTRONICALLY SIGNED> By: Flavio Ochoa MD, [facility] 05/03/17 1037 1037 1037 Flavio Ochoa MD, FACC /INF
--- NOTE | ~2017-04-29 | HC ---
[facility] [place] [address] CONSULTATION Name: BIJAL YEUNG Room #: 246-P ADM IN M.R.#: [id number] Admission: 04/29/17 Attend Phys: Jan Forde MD Discharge: Date of : 55 Report #: [id number] THIS REPORT FOR: //name// CC: FAM unknown Jan Forde DATE OF SERVICE: 05/05/2017 ATTENDING PHYSICIAN: Jan Forde MD REASON FOR CONSULTATION: Acute kidney injury. HISTORY OF PRESENT ILLNESS: A 62-year-old patient with diabetes and poor self care, presented with a gluteal abscess, which was large, had drainage of said abscess with MSSA high-grade bacteremia, which has persisted worsening hypotension, sepsis, decreased urine output, elevating creatinine, and mental status changes. PAST MEDICAL HISTORY: COPD, heavy smoker, and diabetes. FAMILY HISTORY: Not available. SOCIAL HISTORY: Heavy smoker. HOME MEDICATIONS: Xanax, Soma, and oxycodone as listed. REVIEW OF SYSTEMS: Cannot be taken due to her mental status. She really is not cooperative or answering questions. PHYSICAL EXAMINATION: GENERAL: She is awake, does not answer, does not track, does not follow, slightly tachypneic. SKIN: She is rather pale. SKELETAL: Somewhat obese. HEENT: Extraocular movements are not tested due to poor cooperation. Pupils are reactive. No scleral icterus. Hearing is difficult to test. Mucous membranes are slightly dry. NECK: Veins are flat. CHEST: Shows diminished breath sounds at the bases. HEART: Regular with tachycardia. ABDOMEN: Tender and distended, . EXTREMITIES: Showing no peripheral edema. Peripheral pulses diminished. LABORATORY DATA: Hemoglobin 8.4, white count is 25,000, but no bands are listed on the differential; and platelets are 369. Sodium 138, potassium 3.4, chloride 105, bicarbonate 20, BUN 24, creatinine 2.6, calcium is 6.4. Last albumin was [facility] [employer] [address] [place] [address] CONSULTATION Name: BIJAL YEUNG Room #: [facility] IN [facility]#: [id number] Admission: 04/29/17 Attend Phys: Jan Forde MD Discharge: Date of : 55 Report #: [id number] only 1. Lactic acid 1.5. ASSESSMENT: 1. Acute kidney injury. She has rather severe ongoing sepsis. She has had drainage, may need drainage again. She may have something going on in her abdomen in a secondary fashion. She is confused with clearcut mental status changes. We will attempt to initiate a urinary output and increase IV fluids, but she certainly may need CRRT therapy sooner rather than later. 2. Systemic inflammatory response syndrome with severe sepsis, methicillin-sensitive Staphylococcus aureus bacteremia, gluteal abscess. 3. Underlying diabetes. 4. Chronic obstructive pulmonary disease with smoking. <ELECTRONICALLY SIGNED> By: Pipe Santos MD 05/19/17 1211 0951 1223 Pipe Santos MD /nt
--- NOTE | ~2017-04-29 | HC ---
[facility] [place] [address] CONSULTATION Name: BIJAL YEUNG Anselmo Room #: 236-P ADM IN .R.#: [id number] Admission: 04/29/17 Attend Phys: Jan Forde MD Discharge: Date of : 55 Report #: [id number] THIS REPORT FOR: //name// CC: FAM unknown Jan Forde DATE OF SERVICE: 05/03/2017 PERSONAL PHYSICIAN: Jan Forde MD CHIEF COMPLAINT: Right gluteal-perineal abscess. HISTORY OF PRESENT ILLNESS: This is a 62-year-old white female with history of type 2 diabetes and COPD who presented to the Emergency Department for overall generalized malaise over the past several days. The patient's family was concerned that she was not eating or drinking and the time that the senior services were called that she was found to be covered in her own feces and lying on the floor in her apartment. Upon arrival to the Emergency Department, she was found to have cellulitis on the right buttock area extending into the perineal region and an MRI showed an abscess. The patient was taken to the operating room and has had incision and drainage at least twice with Dr. Vargas. The patient also had fluid resuscitation in the Emergency Department and started on broad spectrum IV antibiotics. We have been asked to assist in the care of the wound at this time. The patient herself is a very poor historian, has now actually just been transferred from the med-surg floor to ICU for hypotension and possible sepsis. PAST MEDICAL HISTORY: Per old records is significant for diabetes, COPD, right gluteal-perineal abscess. CURRENT MEDICATIONS: Prior to the hospital were Percocet, Xanax and Soma. DRUG ALLERGIES: CODEINE. SOCIAL HISTORY: The patient smokes 1 pack of cigarettes daily, does not drink alcohol. FAMILY HISTORY: Not pertinent to current medical condition. REVIEW OF SYSTEMS: Unobtainable because of the patient's altered mental status because of hypotension. PHYSICAL EXAMINATION: VITAL SIGNS: Temperature 36.3, pulse 97, respiratory rate 18, BP 95/51. GENERAL: This is an arousable, but moaning white female who is unable to answer appropriate questions. [facility] [address] [place] [address] CONSULTATION Name: BIJAL YEUNG Room #: 236-P [facility] IN [facility].#: [id number] Admission: 04/29/17 Attend Phys: Jan Forde MD Discharge: Date of : 55 Report #: [id number] HEENT: Normocephalic, atraumatic. Mucous membranes are dry. Pupils are round. Sclerae are white. NECK: Supple without rigidity or JVD. BACK: Nontender. LUNGS: Slight diminished breath sounds heard throughout, but no rhonchi. CHEST: Nontender. HEART: Tachycardic with a 2/6 systolic ejection murmur. ABDOMEN: Soft, nontender without organomegaly. EXTREMITIES: The patient moves all extremities without difficulty. Bilateral heels are intact. Distal pulses are 1+, but symmetric. Evaluation of right gluteal region reveals a large surgical wound, which extends up into her right labial region. There is a mcgraw moderately foul-smelling drainage coming from out of the wound itself. This extends back up into the right buttock region, some mix of approximately 75% granulation tissue with 25% yellow loose slough. There is no evidence of any further eschar or necrotic tissue noted. There is no evidence of any bone involvement at this time. NEUROLOGIC: Cranial nerves 2-12 are grossly intact. Motor and sensory are grossly intact except for the patient is confused and appears to have altered mental status. LABORATORY VALUES: White count 13.0, hemoglobin 8.2. BUN 25, creatinine 2.0. Albumin markedly low at 0.9, prealbumin is 4.5. WOUND CARE COURSE: At this time, given the location of the patient's surgical wound, the chance to try to get a wound VAC or negative pressure therapy in this spot to take whole is very unlikely. We will continue with Dakin's quarter strength solution on Kerlix pack within the wound covering with an ABD, have this changed twice daily. We will have the patient on a low air loss mattress and have her turned every 2 hours. Continue IV antibiotics per Infectious Diseases recommendations. At some point in time, we need to address the fact that the patient has severe protein-calorie malnutrition and whether the patient would be a candidate for a temporary PEG tube versus TPN given the fact that the patient is not eating by mouth at this time. IMPRESSION: 1. Right gluteal/perineal abscess status post incision and drainage, multiple times. 2. History of chronic obstructive pulmonary disease. 3. History of tobaccoism. 4. Severe protein-calorie malnutrition with albumin of 0.8, prealbumin of 4.7. 5. Generalized debility. 6. Sepsis with hypotension. [facility] [address] [place] [address] CONSULTATION Name: BIJAL YEUNG Room #: 236-P ADM IN .R.#: [id number] Admission: 04/29/17 Attend Phys: Jan Forde MD Discharge: Date of : 55 Report #: [id number] PLAN: Described in length as above. We will continue to follow the patient. I appreciate the ability to consult. <ELECTRONICALLY SIGNED> By: Nitin Jefferson MD 05/13/17 1131 1451 2222 Nitin Jefferson MD /nt
[2017-04-29 13:29] VITALS: BP 133/69
[2017-04-29] MEDS ORDERED: XANAX1 MG PO (13:35)
[2017-04-29] MEDS ORDERED: PERCOCET 10-321 EACH PO (13:35)
[2017-04-29] MEDS ORDERED: CARISOPRODOL 3350 MG PO (13:36)
[2017-04-29 14:25] LABS: MCH 27.9 pg (26.0-34.0); MCHC 34.3 g/dL (28.0-37.0); MCV 81.5 fL (80.0-100.0); PLATELET COUNT 260 thou/uL (150-400); RBC 4.29 mil/uL (4.20-5.00); RDW 13.3 % (10.5-14.5); WBC 10.3 thou/uL (4.0-11.0)
[2017-04-29 14:38] LABS: ANION GAP 6 mmol/L (7-16); BUN 10 mg/dL (7-18); CALCIUM 8.3 mg/dL (8.5-10.1); CHLORIDE 88 mmol/L (98-107); CO2 35 mmol/L (21-32); CREATININE 0.6 mg/dL (0.6-1.0); GLUCOSE 235 mg/dL (74-106); SODIUM 129 mmol/L (136-145)
[2017-04-29 14:40] LABS: POTASSIUM 2.3 mmol/L (3.5-5.1)
[2017-04-29 14:48] LABS: TROPONIN-I < 0.04 ng/mL (<0.06)
[2017-04-29 15:02] LABS: ABSOLUTE NEUTROPHILS 10.1 thou/uL (1.4-8.2); ANISOCYTOSIS 1+; POLYCHROMASIA OCCASIONAL
[2017-04-29 16:47] LABS: URINE BILIRUBIN NEGATIVE (Negative); URINE BLOOD 1+ (Negative); URINE CLARITY SL CLOUDY; URINE COLOR YELLOW; URINE GLUCOSE-RANDOM* 1+ (Negative); URINE KETONES 2+ (Negative); URINE LEUKOCYTES-REFLEX NEGATIVE (Negative); URINE NITRITE-REFLEX NEGATIVE (Negative); URINE PROTEIN (DIPSTICK) NEGATIVE (Negative)
[2017-04-29 17:02] LABS: SQUAMOUS 4-10 Moderate /LPF (0-3)
[2017-04-29 17:03] LABS: BACTERIA-REFLEX >30 Many /HPF (None Seen); CASTS None Seen /LPF (None Seen); CRYSTALS None Seen /LPF (None Seen); URINE RBC 0-2 Rare /HPF (0-2); URINE WBC-REFLEX 0-5 Rare /HPF (0-5)
[2017-04-29 18:20] VITALS: BP 129/61; BP 140/34
[2017-04-29 20:00] VITALS: BP 118/47
[2017-04-29 21:22] LABS: CALCIUM 7.7 mg/dL (8.5-10.1); CREATININE 0.6 mg/dL (0.6-1.0)
[2017-04-29 21:25] LABS: POTASSIUM 2.3 mmol/L (3.5-5.1)
[2017-04-29 21:54] LABS: FOLIC ACID 9.4 ng/mL (8.6-58.9)
[2017-04-30] VITALS (8 sets, daily range): BP systolic 89–105; BP diastolic 45–61
[2017-04-30 05:07] LABS: GLYCOHEMOGLOBIN (HGB A1C) 11.7 % (4.8-5.6)
[2017-04-30 05:25] LABS: HEMATOCRIT 31.1 % (37.0-47.0); HEMOGLOBIN 10.7 gm/dL (12.0-15.0); MCH 28.1 pg (26.0-34.0); MCHC 34.3 g/dL (28.0-37.0); MCV 81.9 fL (80.0-100.0); RBC 3.79 mil/uL (4.20-5.00); RDW 13.3 % (10.5-14.5); WBC 9.6 thou/uL (4.0-11.0)
[2017-04-30 05:40] LABS: CALCIUM 7.7 mg/dL (8.5-10.1); CREATININE 0.6 mg/dL (0.6-1.0); MAGNESIUM 1.2 mg/dL (1.8-2.4)
[2017-04-30 05:42] LABS: POTASSIUM 2.9 mmol/L (3.5-5.1)
[2017-04-30 12:01] LABS: POTASSIUM 3.9 mmol/L (3.5-5.1)
[2017-05-01] VITALS (7 sets, daily range): BP systolic 84–154; BP diastolic 42–102
[2017-05-01 06:48] LABS: MCH 28.6 pg (26.0-34.0); MCHC 34.4 g/dL (28.0-37.0); MCV 83.2 fL (80.0-100.0); RBC 3.01 mil/uL (4.20-5.00); RDW 13.5 % (10.5-14.5); WBC 10.2 thou/uL (4.0-11.0)
[2017-05-01 06:54] LABS: HEMOGLOBIN 8.6 gm/dL (12.0-15.0)
[2017-05-01 07:06] LABS: CALCIUM 7.6 mg/dL (8.5-10.1); POTASSIUM 3.6 mmol/L (3.5-5.1)
[2017-05-01 12:10] LABS: HEMATOCRIT 23.8 % (37.0-47.0); HEMOGLOBIN 8.1 gm/dL (12.0-15.0); MCH 28.3 pg (26.0-34.0); MCHC 34.1 g/dL (28.0-37.0); MCV 82.9 fL (80.0-100.0); RBC 2.87 mil/uL (4.20-5.00); RDW 13.7 % (10.5-14.5); WBC 10.7 thou/uL (4.0-11.0)
[2017-05-02 03:25] VITALS: BP 107/57
[2017-05-02 06:16] LABS: HEMATOCRIT 22.9 % (37.0-47.0); HEMOGLOBIN 7.7 gm/dL (12.0-15.0); MCH 27.6 pg (26.0-34.0); MCHC 33.4 g/dL (28.0-37.0); MCV 82.7 fL (80.0-100.0); RBC 2.78 mil/uL (4.20-5.00); RDW 13.7 % (10.5-14.5)
[2017-05-02 06:31] LABS: CALCIUM 7.7 mg/dL (8.5-10.1); CREATININE 1.6 mg/dL (0.6-1.0); POTASSIUM 3.8 mmol/L (3.5-5.1)
[2017-05-02 07:24] VITALS: BP 114/67
[2017-05-02 15:29] VITALS: BP 106/66
[2017-05-02 20:10] VITALS: BP 120/70
[2017-05-03] VITALS (53 sets, daily range): BP systolic 79–110; BP diastolic 46–78
[2017-05-03 06:01] LABS: HEMATOCRIT 23.8 % (37.0-47.0); HEMOGLOBIN 8.1 gm/dL (12.0-15.0); MCHC 33.9 g/dL (28.0-37.0); MCV 82.6 fL (80.0-100.0); RBC 2.89 mil/uL (4.20-5.00); RDW 13.9 % (10.5-14.5); WBC 13.1 thou/uL (4.0-11.0)
[2017-05-03 06:08] LABS: CALCIUM 7.7 mg/dL (8.5-10.1); POTASSIUM 3.6 mmol/L (3.5-5.1)
[2017-05-03 10:37] LABS: BE(vivo) 2.7 mmol/L (-2 to +3); HCO3 26.7 mmol/L (22.0-26.0); PO2 65.8 mmHg (80.0-100.0); pH 7.454 (7.360-7.450); sO2 93.9 % (92.0-98.0)
[2017-05-03 10:44] LABS: ABSOLUTE NEUTROPHILS 10.5 thou/uL (1.4-8.2); BASOPHILS 0.5 % (0.0-2.0); EOSINOPHILS 0.3 % (0.0-3.0); HEMOGLOBIN 8.2 gm/dL (12.0-15.0); LYMPHOCYTES 13.4 % (24.0-44.0); MCHC 34.2 g/dL (28.0-37.0); MONOCYTES 4.9 % (1.0-8.0); PLATELET COUNT 208 thou/uL (150-400); POLYS 80.9 % (36.0-66.0); RBC 2.93 mil/uL (4.20-5.00); RDW 13.9 % (10.5-14.5)
[2017-05-03 10:53] LABS: CALCIUM 7.5 mg/dL (8.5-10.1); POTASSIUM 3.7 mmol/L (3.5-5.1)
[2017-05-03 10:56] LABS: APTT 38.5 Seconds (24.5-32.8); FIBRINOGEN 438.2 mg/dL (210-360); INR 1.2; PROTIME 11.9 Seconds (9.3-11.4)
[2017-05-03 10:59] LABS: ALBUMIN 0.9 g/dL (3.4-5.0); TOTAL BILIRUBIN 4.2 mg/dL (<0.1-1.0); TOTAL PROTEIN 4.3 g/dL (6.4-8.2)
[2017-05-03 14:48] LABS: URINE BILIRUBIN 1+ (Negative); URINE BLOOD 1+ (Negative); URINE CLARITY CLEAR; URINE COLOR YELLOW; URINE GLUCOSE-RANDOM* NEGATIVE (Negative); URINE KETONES TRACE (Negative); URINE NITRITE-REFLEX NEGATIVE (Negative); URINE PROTEIN (DIPSTICK) NEGATIVE (Negative); URINE SPECIFIC GRAVITY <= 1.005 (1.005-1.035)
[2017-05-03 14:51] LABS: CALCIUM 7.4 mg/dL (8.5-10.1); CREATININE 2.1 mg/dL (0.6-1.0); POTASSIUM 3.7 mmol/L (3.5-5.1)
[2017-05-03 14:55] LABS: URINE LEUKOCYTES-REFLEX 1+ (Negative)
[2017-05-03 15:01] LABS: YEAST-REFLEX Present (None Seen)
[2017-05-03 15:02] LABS: BACTERIA-REFLEX 1-9 Few /HPF (None Seen); CASTS None Seen /LPF (None Seen); CRYSTALS None Seen /LPF (None Seen); SQUAMOUS None Seen /LPF (0-3); TRANSITIONAL EPITHEL CELL 0-3 Few /LPF (None Seen); URINE RBC 0-2 Rare /HPF (0-2)
[2017-05-03 18:30] LABS: POTASSIUM 3.6 mmol/L (3.5-5.1)
[2017-05-04] VITALS (93 sets, daily range): BP systolic 73–142; BP diastolic 33–91
[2017-05-04 05:04] LABS: ABSOLUTE NEUTROPHILS 12.9 thou/uL (1.4-8.2); BASOPHILS 0.2 % (0.0-2.0); EOSINOPHILS 0.2 % (0.0-3.0); HEMATOCRIT 22.8 % (37.0-47.0); HEMOGLOBIN 7.6 gm/dL (12.0-15.0); LYMPHOCYTES 15.5 % (24.0-44.0); MCH 27.8 pg (26.0-34.0); MCHC 33.5 g/dL (28.0-37.0); MONOCYTES 3.9 % (1.0-8.0); PLATELET COUNT 235 thou/uL (150-400); POLYS 80.2 % (36.0-66.0); RBC 2.75 mil/uL (4.20-5.00)
[2017-05-04 05:19] LABS: CALCIUM 6.3 mg/dL (8.5-10.1); POTASSIUM 3.5 mmol/L (3.5-5.1)
[2017-05-05] VITALS (54 sets, daily range): BP systolic 68–128; BP diastolic 34–82
[2017-05-05 04:38] LABS: HEMATOCRIT 25.5 % (37.0-47.0); HEMOGLOBIN 8.4 gm/dL (12.0-15.0); MCH 27.4 pg (26.0-34.0); MCV 83.1 fL (80.0-100.0); RBC 3.06 mil/uL (4.20-5.00); RDW 14.5 % (10.5-14.5)
[2017-05-05 04:41] LABS: PLATELET COUNT 369 thou/uL (150-400)
[2017-05-05 04:46] LABS: CALCIUM 6.4 mg/dL (8.5-10.1); CREATININE 2.6 mg/dL (0.6-1.0); POTASSIUM 3.4 mmol/L (3.5-5.1)
[2017-05-05 05:17] LABS: ABSOLUTE NEUTROPHILS 20.5 thou/uL (1.4-8.2); METAMYELOCYTES 3 %
[2017-05-05 08:03] LABS: DIRECT BILIRUBIN 3.8 mg/dL (<0.1-0.3); TOTAL BILIRUBIN 6.8 mg/dL (<0.1-1.0)
[2017-05-06] VITALS (50 sets, daily range): BP systolic 76–138; BP diastolic 39–93
[2017-05-06 05:18] LABS: BE(vivo) -3.6 mmol/L (-2 to +3); HCO3 19.6 mmol/L (22.0-26.0); PCO2 28.6 mmHg (35.0-45.0); PO2 84.8 mmHg (80.0-100.0); pH 7.454 (7.360-7.450)
[2017-05-06 05:54] LABS: HEMATOCRIT 24.2 % (37.0-47.0); MCH 27.2 pg (26.0-34.0); MCV 82.5 fL (80.0-100.0); PLATELET COUNT 317 thou/uL (150-400); RBC 2.93 mil/uL (4.20-5.00); RDW 14.3 % (10.5-14.5); WBC 22.5 thou/uL (4.0-11.0)
[2017-05-06 06:03] LABS: ALBUMIN 0.9 g/dL (3.4-5.0); CALCIUM 6.1 mg/dL (8.5-10.1); CREATININE 2.7 mg/dL (0.6-1.0); PHOSPHORUS 4.1 mg/dL (2.5-4.9); POTASSIUM 3.7 mmol/L (3.5-5.1); TOTAL BILIRUBIN 7.9 mg/dL (<0.1-1.0); TOTAL PROTEIN 5.1 g/dL (6.4-8.2)
[2017-05-06 07:44] LABS: ABSOLUTE NEUTROPHILS 19.6 thou/uL (1.4-8.2); METAMYELOCYTES 1 %; MYELOCYTES 1 %
[2017-05-06 07:48] LABS: ANISOCYTOSIS SLIGHT; HYPOCHROMASIA 1+
[2017-05-07] VITALS (41 sets, daily range): BP systolic 86–122; BP diastolic 46–65
[2017-05-07 04:26] LABS: MCV 80.9 fL (80.0-100.0)
[2017-05-07 04:28] LABS: HEMATOCRIT 20.4 % (37.0-47.0); MCH 27.8 pg (26.0-34.0); MCHC 34.3 g/dL (28.0-37.0); PLATELET COUNT 305 thou/uL (150-400); RBC 2.52 mil/uL (4.20-5.00); RDW 14.9 % (10.5-14.5); WBC 15.7 thou/uL (4.0-11.0)
[2017-05-07 04:47] LABS: ALBUMIN 0.8 g/dL (3.4-5.0); CREATININE 2.4 mg/dL (0.6-1.0); MAGNESIUM 1.2 mg/dL (1.8-2.4); PHOSPHORUS 3.3 mg/dL (2.5-4.9)
[2017-05-07 04:54] LABS: CALCIUM 5.5 mg/dL (8.5-10.1)
[2017-05-07 06:14] LABS: ABSOLUTE NEUTROPHILS 12.9 thou/uL (1.4-8.2)
[2017-05-08] VITALS (41 sets, daily range): BP systolic 79–121; BP diastolic 43–69
[2017-05-08 06:07] LABS: MCH 28.5 pg (26.0-34.0); MCHC 35.8 g/dL (28.0-37.0); MCV 79.6 fL (80.0-100.0); PLATELET COUNT 246 thou/uL (150-400); RBC 2.46 mil/uL (4.20-5.00); RDW 14.8 % (10.5-14.5); WBC 10.6 thou/uL (4.0-11.0)
[2017-05-08 06:12] LABS: HEMATOCRIT 19.6 % (37.0-47.0)
[2017-05-08 06:28] LABS: ALBUMIN 0.8 g/dL (3.4-5.0); CREATININE 2.6 mg/dL (0.6-1.0); MAGNESIUM 1.9 mg/dL (1.8-2.4); PHOSPHORUS 2.9 mg/dL (2.5-4.9); POTASSIUM 3.3 mmol/L (3.5-5.1); TOTAL BILIRUBIN 6.1 mg/dL (<0.1-1.0); TOTAL PROTEIN 4.8 g/dL (6.4-8.2)
[2017-05-08 06:32] LABS: CALCIUM 5.9 mg/dL (8.5-10.1)
[2017-05-08 06:40] LABS: ABSOLUTE NEUTROPHILS 8.8 thou/uL (1.4-8.2)
[2017-05-08 06:41] LABS: ANISOCYTOSIS 1+; HYPOCHROMASIA 1+; MICROCYTES 1+; POLYCHROMASIA OCCASIONAL
[2017-05-09] VITALS (27 sets, daily range): BP systolic 77–120; BP diastolic 32–62
[2017-05-09 05:21] LABS: HEMATOCRIT 23.3 % (37.0-47.0); HEMOGLOBIN 8.2 gm/dL (12.0-15.0); MCHC 35.1 g/dL (28.0-37.0); MCV 79.8 fL (80.0-100.0); RBC 2.92 mil/uL (4.20-5.00); RDW 15.1 % (10.5-14.5); WBC 11.1 thou/uL (4.0-11.0)
[2017-05-09 05:40] LABS: ALBUMIN 0.8 g/dL (3.4-5.0); CREATININE 2.8 mg/dL (0.6-1.0); PHOSPHORUS 3.2 mg/dL (2.5-4.9); POTASSIUM 3.1 mmol/L (3.5-5.1)
[2017-05-09 05:44] LABS: CALCIUM 5.9 mg/dL (8.5-10.1)
[2017-05-10] VITALS (29 sets, daily range): BP systolic 79–114; BP diastolic 47–60
[2017-05-10 05:50] LABS: HEMATOCRIT 22.9 % (37.0-47.0); HEMOGLOBIN 8.2 gm/dL (12.0-15.0); MCH 28.1 pg (26.0-34.0); MCHC 35.6 g/dL (28.0-37.0); MCV 78.9 fL (80.0-100.0); RBC 2.91 mil/uL (4.20-5.00); RDW 15.2 % (10.5-14.5); WBC 13.1 thou/uL (4.0-11.0)
[2017-05-10 06:03] LABS: ALBUMIN 0.8 g/dL (3.4-5.0); CALCIUM 6.4 mg/dL (8.5-10.1); CREATININE 2.9 mg/dL (0.6-1.0); MAGNESIUM 1.6 mg/dL (1.8-2.4); PHOSPHORUS 3.1 mg/dL (2.5-4.9); POTASSIUM 3.4 mmol/L (3.5-5.1)
[2017-05-11] VITALS (24 sets, daily range): BP systolic 91–120; BP diastolic 49–90
[2017-05-11 04:22] LABS: HEMOGLOBIN 8.7 gm/dL (12.0-15.0); MCH 27.7 pg (26.0-34.0); MCHC 34.7 g/dL (28.0-37.0); MCV 79.9 fL (80.0-100.0); RBC 3.13 mil/uL (4.20-5.00); RDW 15.3 % (10.5-14.5)
[2017-05-11 04:33] LABS: ALBUMIN 0.9 g/dL (3.4-5.0); CALCIUM 6.9 mg/dL (8.5-10.1); CREATININE 3.1 mg/dL (0.6-1.0); PHOSPHORUS 3.7 mg/dL (2.5-4.9); POTASSIUM 3.8 mmol/L (3.5-5.1); TOTAL BILIRUBIN 3.4 mg/dL (<0.1-1.0); TOTAL PROTEIN 5.7 g/dL (6.4-8.2)
[2017-05-12] VITALS (18 sets, daily range): BP systolic 84–113; BP diastolic 44–68
[2017-05-12 05:10] LABS: ALBUMIN 0.8 g/dL (3.4-5.0); CALCIUM 7.2 mg/dL (8.5-10.1); CREATININE 2.9 mg/dL (0.6-1.0); PHOSPHORUS 4.5 mg/dL (2.5-4.9)
[2017-05-12 05:24] LABS: POTASSIUM 2.7 mmol/L (3.5-5.1)
[2017-05-12 13:58] LABS: ALBUMIN 0.8 g/dL (3.4-5.0); CALCIUM 7.2 mg/dL (8.5-10.1); CREATININE 2.9 mg/dL (0.6-1.0); PHOSPHORUS 4.4 mg/dL (2.5-4.9)
[2017-05-12 14:02] LABS: POTASSIUM 2.6 mmol/L (3.5-5.1)
[2017-05-13] VITALS (19 sets, daily range): BP systolic 75–107; BP diastolic 37–69
[2017-05-13 04:58] LABS: ALBUMIN 0.8 g/dL (3.4-5.0); CALCIUM 7.6 mg/dL (8.5-10.1); CREATININE 2.9 mg/dL (0.6-1.0); PHOSPHORUS 4.5 mg/dL (2.5-4.9); POTASSIUM 3.1 mmol/L (3.5-5.1)
[2017-05-14] VITALS (68 sets, daily range): BP systolic 78–124; BP diastolic 45–66
[2017-05-14 05:29] LABS: MCH 28.2 pg (26.0-34.0); MCHC 34.9 g/dL (28.0-37.0); PLATELET COUNT 267 thou/uL (150-400); RBC 2.16 mil/uL (4.20-5.00); WBC 11.9 thou/uL (4.0-11.0)
[2017-05-14 05:31] LABS: HEMATOCRIT 17.5 % (37.0-47.0); HEMOGLOBIN 6.1 gm/dL (12.0-15.0)
[2017-05-14 05:43] LABS: ALBUMIN 0.7 g/dL (3.4-5.0); CALCIUM 7.2 mg/dL (8.5-10.1); CREATININE 2.6 mg/dL (0.6-1.0); PHOSPHORUS 4.5 mg/dL (2.5-4.9)
[2017-05-14 05:48] LABS: POTASSIUM 2.7 mmol/L (3.5-5.1)
[2017-05-14 05:58] LABS: HYPOCHROMASIA 1+; MICROCYTES 1+
[2017-05-14 05:59] LABS: POLYCHROMASIA OCCASIONAL
[2017-05-14 10:57] LABS: HEMATOCRIT 21.2 % (37.0-47.0); HEMOGLOBIN 7.4 gm/dL (12.0-15.0)
[2017-05-15] VITALS (22 sets, daily range): BP systolic 104–125; BP diastolic 56–72
[2017-05-15 05:46] LABS: ABSOLUTE NEUTROPHILS 8.5 thou/uL (1.4-8.2); EOSINOPHILS 0.1 % (0.0-3.0); HEMATOCRIT 20.3 % (37.0-47.0); HEMOGLOBIN 7.1 gm/dL (12.0-15.0); LYMPHOCYTES 13.1 % (24.0-44.0); MCH 28.8 pg (26.0-34.0); MCHC 34.9 g/dL (28.0-37.0); MCV 82.4 fL (80.0-100.0); MONOCYTES 5.6 % (1.0-8.0); PLATELET COUNT 286 thou/uL (150-400); POLYS 80.2 % (36.0-66.0); RBC 2.46 mil/uL (4.20-5.00); RDW 15.9 % (10.5-14.5); WBC 10.6 thou/uL (4.0-11.0)
[2017-05-15 06:03] LABS: ALBUMIN 0.7 g/dL (3.4-5.0); CALCIUM 7.6 mg/dL (8.5-10.1); CREATININE 2.5 mg/dL (0.6-1.0); DIRECT BILIRUBIN 0.5 mg/dL (<0.1-0.3); MAGNESIUM 1.8 mg/dL (1.8-2.4); PHOSPHORUS 4.4 mg/dL (2.5-4.9); POTASSIUM 3.4 mmol/L (3.5-5.1); TOTAL BILIRUBIN 1.3 mg/dL (<0.1-1.0); TOTAL PROTEIN 4.9 g/dL (6.4-8.2)
[2017-05-16] VITALS (15 sets, daily range): BP systolic 88–125; BP diastolic 44–80
[2017-05-16 06:49] LABS: ALBUMIN 0.7 g/dL (3.4-5.0); CALCIUM 7.8 mg/dL (8.5-10.1); CREATININE 2.3 mg/dL (0.6-1.0); POTASSIUM 3.7 mmol/L (3.5-5.1)
[2017-05-16 07:55] LABS: HEMATOCRIT 22.7 % (37.0-47.0); HEMOGLOBIN 7.9 gm/dL (12.0-15.0); MCH 29.3 pg (26.0-34.0); MCV 83.8 fL (80.0-100.0); RBC 2.71 mil/uL (4.20-5.00); WBC 10.7 thou/uL (4.0-11.0)
[2017-05-16 23:21] LABS: HEMATOCRIT 23.6 % (37.0-47.0); HEMOGLOBIN 8.1 gm/dL (12.0-15.0); MCH 28.9 pg (26.0-34.0); MCHC 34.3 g/dL (28.0-37.0); MCV 84.1 fL (80.0-100.0); RBC 2.81 mil/uL (4.20-5.00); RDW 16.8 % (10.5-14.5); WBC 16.7 thou/uL (4.0-11.0)
[2017-05-16 23:28] LABS: CALCIUM 7.5 mg/dL (8.5-10.1); CREATININE 2.3 mg/dL (0.6-1.0); POTASSIUM 3.8 mmol/L (3.5-5.1)
[2017-05-17] VITALS (25 sets, daily range): BP systolic 89–118; BP diastolic 47–72
[2017-05-17 06:06] LABS: ALBUMIN 0.6 g/dL (3.4-5.0); CALCIUM 7.7 mg/dL (8.5-10.1); CREATININE 2.3 mg/dL (0.6-1.0); PHOSPHORUS 4.5 mg/dL (2.5-4.9); POTASSIUM 3.7 mmol/L (3.5-5.1)
[2017-05-17 07:07] LABS: HEMATOCRIT 22.7 % (37.0-47.0); HEMOGLOBIN 7.8 gm/dL (12.0-15.0); MCH 29.3 pg (26.0-34.0); MCHC 34.5 g/dL (28.0-37.0); MCV 84.8 fL (80.0-100.0); RBC 2.68 mil/uL (4.20-5.00); RDW 16.8 % (10.5-14.5); WBC 13.6 thou/uL (4.0-11.0)
[2017-05-18] VITALS (20 sets, daily range): BP systolic 96–140; BP diastolic 60–83
[2017-05-18 06:37] LABS: ALBUMIN 0.7 g/dL (3.4-5.0); CALCIUM 7.3 mg/dL (8.5-10.1); CREATININE 2.2 mg/dL (0.6-1.0); PHOSPHORUS 4.1 mg/dL (2.5-4.9); POTASSIUM 3.2 mmol/L (3.5-5.1)
[2017-05-19] VITALS (27 sets, daily range): BP systolic 89–131; BP diastolic 46–91
[2017-05-19 05:41] LABS: ABSOLUTE NEUTROPHILS 5.8 thou/uL (1.4-8.2); BASOPHILS 1.4 % (0.0-2.0); EOSINOPHILS 0.3 % (0.0-3.0); HEMOGLOBIN 6.8 gm/dL (12.0-15.0)
[2017-05-19 05:42] LABS: LYMPHOCYTES 23.3 % (24.0-44.0); MCH 29.2 pg (26.0-34.0); MCHC 34.7 g/dL (28.0-37.0); MCV 84.1 fL (80.0-100.0); MONOCYTES 8.1 % (1.0-8.0); PLATELET COUNT 284 thou/uL (150-400); POLYS 66.9 % (36.0-66.0); RBC 2.31 mil/uL (4.20-5.00); RDW 17.6 % (10.5-14.5); WBC 8.6 thou/uL (4.0-11.0)
[2017-05-19 05:49] LABS: ALBUMIN 0.6 g/dL (3.4-5.0); CALCIUM 7.2 mg/dL (8.5-10.1); CREATININE 2.3 mg/dL (0.6-1.0); MAGNESIUM 1.3 mg/dL (1.8-2.4); PHOSPHORUS 3.7 mg/dL (2.5-4.9)
[2017-05-19 06:05] LABS: HEMATOCRIT 19.5 % (37.0-47.0); POTASSIUM 2.9 mmol/L (3.5-5.1)
[2017-05-19 09:39] LABS: % SATURATION 12 % (20-39); IRON 10 ug/dL (50-170); TIBC 81 ug/dL (250-450)
[2017-05-19 10:20] LABS: TSH 7.284 uIU/mL (0.358-3.740)
[2017-05-19 14:58] LABS: MAGNESIUM 1.5 mg/dL (1.8-2.4)
[2017-05-20 05:03] VITALS: BP 120/71
[2017-05-20 06:12] LABS: HEMATOCRIT 22.7 % (37.0-47.0); HEMOGLOBIN 7.9 gm/dL (12.0-15.0); MCH 28.4 pg (26.0-34.0); MCHC 34.8 g/dL (28.0-37.0); MCV 81.6 fL (80.0-100.0); RBC 2.78 mil/uL (4.20-5.00); RDW 17.3 % (10.5-14.5); WBC 8.1 thou/uL (4.0-11.0)
[2017-05-20 06:28] LABS: ALBUMIN 0.7 g/dL (3.4-5.0); ANION GAP 5 mmol/L (7-16); BUN 19 mg/dL (7-18); CALCIUM 7.7 mg/dL (8.5-10.1); CHLORIDE 108 mmol/L (98-107); CO2 27 mmol/L (21-32); GLUCOSE 145 mg/dL (74-106); PHOSPHORUS 3.6 mg/dL (2.5-4.9); SODIUM 140 mmol/L (136-145); TROPONIN-I < 0.04 ng/mL (<0.06)
[2017-05-20 06:29] LABS: POTASSIUM 4.5 mmol/L (3.5-5.1)
[2017-05-20 07:50] VITALS: BP 131/74
[2017-05-20 13:40] VITALS: BP 108/45
[2017-05-20 15:55] VITALS: BP 112/52
[2017-05-20 20:30] VITALS: BP 118/70
[2017-05-21 04:03] LABS: HEMATOCRIT 23.4 % (37.0-47.0); MCH 29.1 pg (26.0-34.0); MCHC 34.3 g/dL (28.0-37.0); MCV 84.7 fL (80.0-100.0); RBC 2.76 mil/uL (4.20-5.00); WBC 9.5 thou/uL (4.0-11.0)
[2017-05-21 04:31] LABS: ALBUMIN 0.7 g/dL (3.4-5.0); CALCIUM 7.5 mg/dL (8.5-10.1); CREATININE 2.1 mg/dL (0.6-1.0); MAGNESIUM 1.7 mg/dL (1.8-2.4); PHOSPHORUS 3.7 mg/dL (2.5-4.9); POTASSIUM 3.9 mmol/L (3.5-5.1); TOTAL BILIRUBIN 0.6 mg/dL (<0.1-1.0); TOTAL PROTEIN 4.7 g/dL (6.4-8.2)
[2017-05-21 05:41] VITALS: BP 115/55
[2017-05-21 07:10] VITALS: BP 113/57
[2017-05-21 11:10] VITALS: BP 115/56
[2017-05-21 16:20] VITALS: BP 133/72
[2017-05-21 19:56] VITALS: BP 132/70
[2017-05-21 20:45] VITALS: BP 132/70
[2017-05-22 05:15] LABS: ALBUMIN 0.7 g/dL (3.4-5.0); CALCIUM 7.3 mg/dL (8.5-10.1); CREATININE 2.1 mg/dL (0.6-1.0); POTASSIUM 3.5 mmol/L (3.5-5.1)
[2017-05-22 05:26] VITALS: BP 131/73
[2017-05-22 07:20] VITALS: BP 137/76
[2017-05-22 11:45] VITALS: BP 130/74
[2017-05-22 16:30] VITALS: BP 127/63
[2017-05-22 19:47] VITALS: BP 138/58
[2017-05-23 04:11] VITALS: BP 150/96
[2017-05-23 04:16] LABS: ALBUMIN 0.7 g/dL (3.4-5.0); CALCIUM 7.4 mg/dL (8.5-10.1); CREATININE 2.1 mg/dL (0.6-1.0); PHOSPHORUS 3.5 mg/dL (2.5-4.9)
[2017-05-23 07:35] VITALS: BP 133/75
[2017-05-23 11:30] VITALS: BP 142/84
[2017-05-23 16:00] VITALS: BP 129/72
[2017-05-23 19:23] VITALS: BP 144/88
[2017-05-24 04:20] VITALS: BP 113/73
[2017-05-24 05:46] LABS: ABSOLUTE NEUTROPHILS 6.6 thou/uL (1.4-8.2); BASOPHILS 0.2 % (0.0-2.0); HEMATOCRIT 31.7 % (37.0-47.0); HEMOGLOBIN 10.5 gm/dL (12.0-15.0); LYMPHOCYTES 15.8 % (24.0-44.0); MCH 27.9 pg (26.0-34.0); MCHC 33.1 g/dL (28.0-37.0); MCV 84.4 fL (80.0-100.0); MONOCYTES 2.3 % (1.0-8.0); PLATELET COUNT 368 thou/uL (150-400); POLYS 81.7 % (36.0-66.0); RBC 3.76 mil/uL (4.20-5.00); RDW 16.9 % (10.5-14.5); WBC 8.1 thou/uL (4.0-11.0)
[2017-05-24 06:01] LABS: ALBUMIN 0.7 g/dL (3.4-5.0); CALCIUM 8.3 mg/dL (8.5-10.1); CREATININE 2.4 mg/dL (0.6-1.0); PHOSPHORUS 4.3 mg/dL (2.5-4.9); POTASSIUM 3.5 mmol/L (3.5-5.1)
[2017-05-24 08:00] VITALS: BP 97/60
[2017-05-24 11:00] VITALS: BP 107/65
[2017-05-24 11:20] LABS: ALBUMIN 0.7 g/dL (3.4-5.0); DIRECT BILIRUBIN 0.2 mg/dL (<0.1-0.3); TOTAL BILIRUBIN 0.6 mg/dL (<0.1-1.0); TOTAL PROTEIN 5.3 g/dL (6.4-8.2)
[2017-05-24] MEDS ORDERED: PEPCID20 MG PO (14:49)
[2017-05-24] MEDS ORDERED: COLACE 100 MG100 MG PO (14:49)
[2017-05-24] MEDS ORDERED: LIDOPATCH1 EACH TRANSDERM (14:49)
[2017-05-24] MEDS ORDERED: DUONEB 2.5-0.5 M3 ML INH ×2 (14:49)
[2017-05-24] MEDS ORDERED: PROCHLORPERAZINE5 M1 PO (14:49)
[2017-05-24] MEDS ORDERED: ENOXAPARIN30 MG/0.1 SUBQ (14:49)
[2017-05-24] MEDS ORDERED: ALDACTONE25 MG PO (14:49)
[2017-05-24] MEDS ORDERED: NYAMYC15 GM TOP (14:49)
[2017-05-24] MEDS ORDERED: DAKIN'S473 M2 IRRIG (14:49)
[2017-05-24] MEDS ORDERED: UNASYN 3 GM VIAL3 G1 IM (14:49)
[2017-05-24] MEDS ORDERED: VITAMIN C1000 MG PO (14:49)
[2017-05-24] MEDS ORDERED: POTASSIUM CHLO20 MEQ PER TUBE (14:49)
[2017-05-24] MEDS ORDERED: CALTRATE-600 W1 EACH PO (14:49)
[2017-05-24] MEDS ORDERED: FUROSEMIDE20 MG/2 ML IV PUSH (14:49)
[2017-05-24] MEDS ORDERED: AQUAPHOR85 GM TOP (14:49)
[2017-05-24] MEDS ORDERED: METOPROLOL5 MG/5 M2 IV PUSH (14:49)
[2017-05-24] MEDS ORDERED: SILVER NITRATE1 EACH TOP (14:49)
[2017-05-24] MEDS ORDERED: CATHFLO ACT2 MG/VIA1 INJECTION (14:49)
[2017-05-24] MEDS ORDERED: VITAMIN D2000 UNIT PO (14:49)
[2017-05-24] MEDS ORDERED: LEVEMIR SUBQ (14:49)
[2017-05-24] MEDS ORDERED: FLUCONAZOLE 10100 MG PO (14:49)
[2017-05-24 15:15] VITALS: BP 103/65
== END 2017-05-24 18:30 | DRG 853 ==
LOC: ER 13:29 → 4N 16:09 → EROBS 16:09 → 4N 18:15 → ICU 05-03 12:04 → 4S 05-15 17:49 → ICU 05-16 19:29 → 2N 05-19 18:14
PROVIDERS: Hospitalist; Internal Medicine; Internal Medicine Infectious Disease; Internal Medicine Nephrology; Internal Medicine Pulmonary Disease; Physician Assistant; Registered Nurse; Specialist; Surgery
PROC: 0JB90ZZ Excision of Buttock Subcutaneous Tissue and Fascia, Open Approach (ICD-10-PCS; 2017-04-30)
PROC: 0JB90ZZ Excision of Buttock Subcutaneous Tissue and Fascia, Open Approach (ICD-10-PCS; principal; 2017-05-01)
PROC: 02HV33Z Insertion of Infusion Device into Superior Vena Cava, Percutaneous Approach (ICD-10-PCS; 2017-05-03)
PROC: B24BZZ4 Ultrasonography of Heart with Aorta, Transesophageal (ICD-10-PCS; 2017-05-05)
PROC: 0JB90ZZ Excision of Buttock Subcutaneous Tissue and Fascia, Open Approach (ICD-10-PCS; 2017-05-13)
PROC: 0Y300ZZ Control Bleeding in Right Buttock, Open Approach (ICD-10-PCS; 2017-05-16)
PROC: 30243N1 Transfusion of Nonautologous Red Blood Cells into Central Vein, Percutaneous Approach (ICD-10-PCS; 2017-05-16)
PROC: 0D1L0Z4 Bypass Transverse Colon to Cutaneous, Open Approach (ICD-10-PCS; 2017-05-20)
PROC: 0QB10ZZ Excision of Sacrum, Open Approach (ICD-10-PCS; 2017-05-20)
PROC: 0DH63UZ Insertion of Feeding Device into Stomach, Percutaneous Approach (ICD-10-PCS; 2017-05-20)
DX: A41.01 Sepsis due to Methicillin susceptible Staphylococcus aureus (principal); L89.154 Pressure ulcer of sacral region, stage 4; E43 Unspecified severe protein-calorie malnutrition; N17.0 Acute kidney failure with tubular necrosis; R65.21 Severe sepsis with septic shock; G92 Toxic encephalopathy; J96.01 Acute respiratory failure with hypoxia; K83.1 Obstruction of bile duct; S32.049A Unspecified fracture of fourth lumbar vertebra, initial encounter for closed fracture; E87.1 Hypo-osmolality and hyponatremia; D62 Acute posthemorrhagic anemia; N39.0 Urinary tract infection, site not specified; L03.317 Cellulitis of buttock; I96 Gangrene, not elsewhere classified; K61.0 Anal abscess; J44.9 Chronic obstructive pulmonary disease, unspecified; E11.9 Type 2 diabetes mellitus without complications; B95.61 Methicillin susceptible Staphylococcus aureus infection as the cause of diseases classified elsewhere; E55.9 Vitamin D deficiency, unspecified; F17.210 Nicotine dependence, cigarettes, uncomplicated; E87.6 Hypokalemia; S30.0XXA Contusion of lower back and pelvis, initial encounter; W18.39XA Other fall on same level, initial encounter; E83.42 Hypomagnesemia; K62.89 Other specified diseases of anus and rectum; N76.89 Other specified inflammation of vagina and vulva; B96.20 Unspecified Escherichia coli [E. coli] as the cause of diseases classified elsewhere; Z28.21 Immunization not carried out because of patient refusal; Z88.5 Allergy status to narcotic agent; Z68.36 Body mass index [BMI] 36.0-36.9, adult; Y92.89 Other specified places as the place of occurrence of the external cause; Y93.89 Activity, other specified; Y99.8 Other external cause status
CPT/HCPCS: 10078; 10081; 10102; 10204; 10790; 27000; 50010; 50101; 50386; 50455; 50781; 50915; 51636; 53078; 53353; 53354; 56524; 56525; 56526; 56529; 56530; 57092; 62110; 62900; 65002; 65090; 70005